=== PATIENT | male | born 1970 | race African-American/Black ===

== ENCOUNTER → 2017-04-21 | Day surgery (SDC) | payer OTHER ==
[~2017-04-21] VITALS: Ht 179.1 cm; Wt 91.2 kg
== END | disposition home or self-care (01) ==
LOC: FAS 10:27
DX: K29.70 Gastritis, unspecified, without bleeding (principal); K21.0 Gastro-esophageal reflux disease with esophagitis; F17.210 Nicotine dependence, cigarettes, uncomplicated; J30.9 Allergic rhinitis, unspecified; Z88.6 Allergy status to analgesic agent; Z88.8 Allergy status to other drugs, medicaments and biological substances; Z80.3 Family history of malignant neoplasm of breast; Z82.49 Family history of ischemic heart disease and other diseases of the circulatory system; Z80.0 Family history of malignant neoplasm of digestive organs; Z79.899 Other long term (current) drug therapy; Z98.890 Other specified postprocedural states
CPT/HCPCS: 88305; J2704

== ENCOUNTER → 2022-01-07 | Day surgery (SDC) | payer OTHER ==
[~2022-01-07] VITALS: Ht 177.8 cm; Wt 91.6 kg
[~2022-01-07] MED LIST: ASPIRIN EC81 MG PO; BREO ELLIPTA 11 EACH INH; BUMEX1 MG PO; DIGITEK125 MCG PO; ENTRESTO 49 MG1 EACH PO; GLUCOPHAGE500 MG PO; LIPITOR40 MG PO; MAG-OXIDE 400M400 MG PO; NORCO 5-325 TA1 EACH PO; SINGULAIR10 MG PO; TOPROL XL 25MG25 MG PO; TRAZODONE 50MG50 MG PO; UROCIT-K10 MEQ PO
== END | disposition home or self-care (01) ==
LOC: FAS 09:22
DX: K64.8 Other hemorrhoids (principal); K63.5 Polyp of colon; K57.30 Diverticulosis of large intestine without perforation or abscess without bleeding; I11.0 Hypertensive heart disease with heart failure; I50.9 Heart failure, unspecified; E11.9 Type 2 diabetes mellitus without complications; Z80.0 Family history of malignant neoplasm of digestive organs; Z95.810 Presence of automatic (implantable) cardiac defibrillator; Z88.3 Allergy status to other anti-infective agents; Z79.82 Long term (current) use of aspirin; Z72.89 Other problems related to lifestyle; Z72.0 Tobacco use
CPT/HCPCS: J2250; J2704; J7120